=== PATIENT | male | born 2000 | race Caucasian/White ===

== ENCOUNTER 2022-10-13 23:04 | Emergency (ER) | payer BC, OTHER | END 2022-10-14 00:01 | LOC: MW.ED 23:04 | DX: R01.0 Benign and innocent cardiac murmurs (principal); V49.40XA Driver injured in collision with unspecified motor vehicles in traffic accident, initial encounter; Y92.410 Unspecified street and highway as the place of occurrence of the external cause | CPT/HCPCS: 99283 ==